=== PATIENT | male | born 1980 | race Caucasian/White ===

== ENCOUNTER 2020-02-23 22:54 | Observation (INO) ==
[2020-02-23 23:34] LABS: Basophils % 0.4 %; Eosinophils # 0.1 K/mcL (0.0-0.6); Eosinophils % 0.4 %; Hemoglobin 12.1 g/dL (12.9-16.9); Immature Granulocytes % 0.4 % (0-4); Lymphocytes # 1.3 K/mcL (0.6-4.6); Lymphocytes % 11.2 %; Mean Corpuscular HGB Conc 33.6 g/dL (31.6-35.5); Mean Corpuscular Hemoglobin 30.1 pg (28.0-33.3); Mean Corpuscular Volume 89.6 fL (83.0-100.0); Mean Platelet Volume 9.6 fL (9.4-12.4); Monocytes % 8.7 %; Neutrophils # 8.9 K/mcL (1.6-8.9); Platelet Count 260 K/mcL (140-400); Red Blood Count 4.02 M/mcL (4.19-5.50); Red Cell Distribution Width 13.2 % (11.5-14.5); Segmented Neutrophils % 78.9 %; White Blood Count 11.3 K/mcL (4.3-11.1)
[2020-02-23 23:40] LABS: Bacteria,Urine Moderate per hpf (None-Few); Bilirubin,Urine Negative (Negative); Blood,Urine Negative (Negative); Clarity,Urine Turbid (Clear); Color,Urine Yellow (Yellow); Glucose,Urine (UA) Normal (Normal); Ketones,Urine 60 mg/dL (Negative); Leukocyte Esterase,Urine Negative (Negative); Mucus,Urine Few per lpf (None-Few); Nitrite,Urine Negative (Negative); Protein,Urine 70 mg/dL (Neg-Trace); RBC,Urine 15-30 per hpf (0-3); Specific Gravity,Urine 1.023 (1.010-1.025); Squamous Epithelial Cell,Urine Few per hpf (None-Few); WBC,Urine 15-30 per hpf (0-3)
[2020-02-23 23:43] LABS: Sperm,Urine Present (None Seen)
[2020-02-23 23:45] LABS: Acetaminophen < 10 mcg/mL (10-20); BUN/Creatinine Ratio 15 (6-26); Blood Urea Nitrogen 28 mg/dL (6-20); Calcium 9.3 mg/dL (8.6-10.3); Carbon Dioxide 20 mEq/L (23-29); Chloride 102 mEq/L (98-107); Ethanol < 10 mg/dL (Less than 10); Glucose 83 mg/dL (70-105); Osmolality,Calculated 293 (280-300); Potassium 3.7 mEq/L (3.5-5.1); Salicylate < 2.5 mg/dL (15.0-30.0); Sodium 139 mEq/L (136-145); eGFR For African Americans 50 (> 60); eGFR For Non-African Americans 41 (> 60)
[2020-02-23 23:47] LABS: Amphetamine Screen,Urine Positive ng/mL (Cutoff=1000); Barbiturate Screen,Urine Negative ng/mL (Cutoff=200); Benzodiazepines Screen,Urine Positive ng/mL (Cutoff=200); Cannabinoid Screen,Urine Positive ng/mL (Cutoff = 50); Cocaine Screen,Urine Positive ng/mL (Cutoff= 300); Opiate Screen,Urine Negative ng/mL (Cutoff=300); Phencyclidine Screen,Urine Negative ng/mL (Cutoff=25)
[2020-02-24] MEDS ORDERED: 0.9 % Sodium Chloride 1,000 ML IV ONE ×3 (00:24→03:37)
[2020-02-24 00:31] LABS: Thyroid Stimulating Hormone 3.898 mcIU/mL (0.340-5.600)
[2020-02-24 03:11] LABS: BUN/Creatinine Ratio 18 (6-26); Blood Urea Nitrogen 26 mg/dL (6-20); Calcium 8.4 mg/dL (8.6-10.3); Carbon Dioxide 17 mEq/L (23-29); Chloride 106 mEq/L (98-107); Glucose 84 mg/dL (70-105); Osmolality,Calculated 290 (280-300); Potassium 4.2 mEq/L (3.5-5.1); Sodium 138 mEq/L (136-145); eGFR For African Americans > 60 (> 60); eGFR For Non-African Americans 57 (> 60)
[2020-02-24] MEDS ORDERED: cephALEXin 250 MG CAPSULE PO ONE (05:56)
[2020-02-24] MEDS ORDERED: *HR* LORazepam 1 MG TABLET PO ONE (10:15)
[2020-02-24 10:48] LABS: Troponin I < 0.03 ng/mL (< 0.04)
[2020-02-24 14:30] LABS: ABG Base Excess -5 mEq/L (-2 to 3); ABG HCO3 15 mEq/L (21-27); ABG Oxygen Saturation 100 % (95-98); ABG PCO2 17 mmHg (35-45); ABG PH 7.57 pH Units (7.32-7.45); ABG PO2 158 mmHg (85-104); ABG TCO2 16 mEq/L (20-26)
[2020-02-24] MEDS ORDERED: Naloxone 0.4 MG/ML INJ IVP PRN (16:42)
[2020-02-24] MEDS: 0.9 % Sodium Chloride 1,000 ML IVC SCH ×2 (17:09→23:40)
[2020-02-24] MEDS ORDERED: *HR* LORazepam 2 MG/ML VIAL IVP PRN ×2 (18:00→18:21)
[2020-02-24] MEDS ORDERED: *HR* LORazepam 2 MG/ML VIAL IVP ONE (20:34)
[2020-02-25 01:48] VITALS: BP 95/56
[2020-02-25 03:54] LABS: Hematocrit 32.4 % (37.5-50.1); Hemoglobin 10.6 g/dL (12.9-16.9); Mean Corpuscular HGB Conc 32.7 g/dL (31.6-35.5); Mean Corpuscular Volume 88.8 fL (83.0-100.0); Mean Platelet Volume 10.1 fL (9.4-12.4); Platelet Count 238 K/mcL (140-400); Red Blood Count 3.65 M/mcL (4.19-5.50); Red Cell Distribution Width 13.5 % (11.5-14.5); White Blood Count 5.5 K/mcL (4.3-11.1)
[2020-02-25 04:08] LABS: BUN/Creatinine Ratio 15 (6-26); Blood Urea Nitrogen 12 mg/dL (6-20); Carbon Dioxide 22 mEq/L (23-29); Chloride 112 mEq/L (98-107); Glucose 113 mg/dL (70-105); Osmolality,Calculated 295 (280-300); Potassium 4.1 mEq/L (3.5-5.1); Sodium 142 mEq/L (136-145); eGFR For African Americans > 60 (> 60); eGFR For Non-African Americans > 60 (> 60)
[2020-02-25 08:32] LABS: VBG HCO3 25 mEq/L (21-27); VBG PCO2 51 mmHg (41-51); VBG PO2 47 mmHg (25-50)
[2020-02-25] MEDS ORDERED: ARIPiprazole 2 MG TABLET PO SCH (09:00)
== END 2020-02-25 12:38 | disposition home or self-care (01) ==
LOC: 3BNU 22:54 → EMEROOARM 22:54 → 3BNU 02-24 16:10
PROVIDERS: ADMIT Pharmacist; ATTEND Pharmacist